=== PATIENT | female | born 1980 | race African-American/Black ===

== ENCOUNTER → 2017-02-05 10:38 | Outpatient (CLI) | payer MEDICARE ==
[2017-02-05 11:50] LABS: ALBUMIN 3.2 g/dL (3.4-5.0); BILIRUBIN - INDIRECT 0.16 mg/dL (0.00-1.00); BILIRUBIN - TOTAL 0.2 mg/dL (0.2-1.3); PROTEIN - SERUM 7.6 g/dL (6.4-8.2)
[2017-02-05 11:51] LABS: BILIRUBIN - DIRECT 0.04 mg/dL (0.00-0.30)
== END | disposition home or self-care (01) ==
LOC: D.US 09:30
PROVIDERS: Internal Medicine Gastroenterology
DX: K76.0 Fatty (change of) liver, not elsewhere classified (principal)

== ENCOUNTER → 2017-03-10 12:53 | Day surgery (SDC) | payer MEDICARE ==
[~2017-03-10] VITALS: Ht 167.6 cm; Wt 168.7 kg
--- NOTE | ~2017-03-10 | OP ---
PATIENT NAME: JADA BOLANOS MEDICAL RECORD: [id number] :78 LOCATION:[facility] ADMISSION DATE: SURGEON: VIOLETTE CARD DO DATE OF OPERATION: 03/10/2017 PROCEDURE: EGD with biopsies. INDICATIONS FOR PROCEDURE: Diarrhea, gas and bloating, heartburn, loss of weight, vomiting. SCOPE: Olympus video gastroscope. MEDICATIONS: Propofol 240 mg IV per anesthesia. ESTIMATED BLOOD LOSS: Minimal. COMPLICATIONS: None. FINDINGS: Informed consent was given. The patient was made comfortable with the above medication. After reaching an adequate level of sedation by slow IV push, the patient was placed on her left side. The endoscope was then advanced under direct visualization through the mouth to the second portion of the duodenum. The upper, middle, and distal thirds of the esophagus appeared normal. At the GE junction, there was very mild evidence of LA class A reflux induced esophagitis. The endoscope was advanced into the stomach and retroflexed to view the cardia, where a diminutive sliding hiatal hernia was present. The fundus and body of the stomach appeared normal. There were a few scattered, benign appearing fundic gland type polyps in the body of the stomach. One polyp was biopsied. The antrum and prepyloric region appeared normal. The endoscope was advanced through the pylorus into the duodenum where the bulb and second portion of the duodenum appeared normal. Random biopsies were taken from the bulb and second portion of the duodenum. The scope was withdrawn back into the stomach where random biopsies of the stomach were taken to submit for histology and to rule out H. pylori. The scope was then withdrawn from the patient. The patient tolerated the procedure well and there were no complications. IMPRESSIONS: 1. Mild LA class A reflux induced esophagitis. 2. Diminutive sliding hiatal hernia. 3. Gastric polyps with a biopsy taken. PLAN AND RECOMMENDATIONS: 1. Discharge home when recovery parameters are met. 2. Continue current medications. 3. Continue current diet. 4. Continue to work on exercise and dietary modifications for weight loss regarding the fatty liver disease history. 5. We will order a gastric emptying scan to rule out gastroparesis as a cause of her symptoms. 6. Follow up in clinic as scheduled and proceed with colonoscopy as planned. TRANSINT:[id number] Voice Confirmation ID: [id number] DOCUMENT ID: [id number] OPERATIVE REPORT [id number] JADA BOLANOS NATHAN A DO CC: [id number] DICTATION DATE: 03/10/17 1615 [place] DIVER: 03/11/17 0215 [facility] 03/10/17 [id number] [place] [address]
[~2017-03-10 12:53] MED LIST: ALDACTONE25 MG PO; AZELASTINE137 MCG/0. NASAL; CATAPRES0.1 MG PO; CYCLOBENZAPRINE10 MG PO; FLUTICASONE PRO16 GM NASAL; GABAPENTIN100 MG PO; LIPITOR40 MG PO; LOPRESSOR25 MG PO; NEXIUM40 MG PO; NYSTATIN1 PWD TOPICAL; SINGULAIR10 MG PO; TOPAMAX200 MG PO; VENTOLIN HFA18 GM INH; ZANTAC150 MG PO; ZOLOFT50 MG PO; ZYRTEC10 MG PO
[2017-03-10 13:44] LABS: HEMATOCRIT 38.5 % (36.0-48.0); HEMOGLOBIN 12.5 g/dL (12-16); MCH 29.6 pg (26.0-34.0); MCHC 32.5 g/dL (31.0-37.0); MEAN PLATELET VOLUME 9.7 fL (7.4-10.4); RBC 4.23 10x6/uL (4.00-5.40); WBC 5.5 10x3/uL (4.8-10.8)
[2017-03-10 13:57] LABS: ANION GAP 12.8 mmol/L (8-16); CALCIUM 9.2 mg/dL (8.5-10.1); CARBON DIOXIDE 25.7 mmol/L (21.0-32.0); CREATININE - SERUM 0.9 mg/dL (0.6-1.3); POTASSIUM - SERUM 3.5 mmol/L (3.5-5.1)
[2017-03-10 14:51] VITALS: BP 91/50; Ht 167.6 cm; Wt 168.7 kg
[2017-03-10 16:03] LABS: HCG URINE NEGATIVE (NEGATIVE)
--- NOTE | 2017-03-10 17:12 | NUR ---
1711-Pt escorted out and accompanied by her mother.
== END | disposition home or self-care (01) ==
LOC: D.OPS 12:53
PROVIDERS: Anesthesiology; Internal Medicine Gastroenterology
DX: K21.0 Gastro-esophageal reflux disease with esophagitis (principal); K44.9 Diaphragmatic hernia without obstruction or gangrene; K31.7 Polyp of stomach and duodenum; K29.80 Duodenitis without bleeding; K29.50 Unspecified chronic gastritis without bleeding; Z01.812 Encounter for preprocedural laboratory examination

== ENCOUNTER → 2017-03-12 11:53 | Outpatient (CLI) | payer MEDICARE ==
[2017-03-10 14:51] VITALS: BMI 60.1
== END | disposition home or self-care (01) ==
LOC: D.NM 11:30
DX: R10.9 Unspecified abdominal pain (principal); R11.10 Vomiting, unspecified; R14.0 Abdominal distension (gaseous)

== ENCOUNTER 2017-03-25 12:54 | Day surgery (SDC) | payer MEDICARE ==
[~2017-03-25] VITALS: Ht 167.6 cm; Wt 168.7 kg
[2017-03-25 14:22] LABS: HEMOGLOBIN 12.4 g/dL (12-16); MCH 29.6 pg (26.0-34.0); MCHC 33.5 g/dL (31.0-37.0); MCV 88.3 fL (80.0-100.0); MEAN PLATELET VOLUME 9.6 fL (7.4-10.4); RBC 4.19 10x6/uL (4.00-5.40); RDW 13.8 % (11.5-14.5); WBC 4.7 10x3/uL (4.8-10.8)
[2017-03-25 14:50] VITALS: BP 142/90; Ht 167.6 cm; Wt 168.7 kg
[2017-03-25 15:59] LABS: HCG SERUM NEGATIVE (NEGATIVE)
--- NOTE | 2017-03-25 19:26 | NUR ---
1830 IV DC WITH CATHER TIP INTACT
== END 2017-03-25 19:00 | disposition home or self-care (01) ==
LOC: D.OPS 12:54
PROVIDERS: Anesthesiology
DX: K58.0 Irritable bowel syndrome with diarrhea (principal); R63.4 Abnormal weight loss; Z01.812 Encounter for preprocedural laboratory examination; D12.2 Benign neoplasm of ascending colon

== ENCOUNTER → 2017-08-06 11:47 | Outpatient (CLI) | payer MEDICARE ==
[2017-03-25 14:50] VITALS: BMI 60.1
[2017-08-06 13:14] LABS: ALBUMIN 3.5 g/dL (3.4-5.0); BILIRUBIN - DIRECT 0.11 mg/dL (0.00-0.30); BILIRUBIN - INDIRECT 0.29 mg/dL (0.00-1.00); BILIRUBIN - TOTAL 0.4 mg/dL (0.2-1.3); PROTEIN - SERUM 7.2 g/dL (6.4-8.2)
== END | disposition home or self-care (01) ==
LOC: D.OPS 03-10 15:00 → D.US 09:30 → D.LAB 10:15 → D.US 10:30
PROVIDERS: Internal Medicine Gastroenterology
DX: K76.0 Fatty (change of) liver, not elsewhere classified (principal)

== ENCOUNTER → 2018-03-03 09:58 | Outpatient (CLI) | payer MEDICARE ==
[2017-03-25 14:50] VITALS: BMI 60.1
[2018-03-03 11:33] LABS: ALBUMIN 3.3 g/dL (3.4-5.0); BILIRUBIN - DIRECT 0.08 mg/dL (0.00-0.30); BILIRUBIN - INDIRECT 0.12 mg/dL (0.00-1.00); BILIRUBIN - TOTAL 0.2 mg/dL (0.2-1.3); PROTEIN - SERUM 7.6 g/dL (6.4-8.2)
== END | disposition home or self-care (01) ==
LOC: D.US 09:30
PROVIDERS: Internal Medicine Gastroenterology
DX: K76.0 Fatty (change of) liver, not elsewhere classified (principal)

== ENCOUNTER → 2018-09-02 09:11 | Outpatient (CLI) | payer MEDICARE ==
[2017-03-25 14:50] VITALS: BMI 60.1
[2018-09-02 10:43] LABS: ALBUMIN 3.4 g/dL (3.4-5.0); BILIRUBIN - DIRECT 0.1 mg/dL (0.00-0.30); BILIRUBIN - INDIRECT 0.19 mg/dL (0.00-1.00); BILIRUBIN - TOTAL 0.29 mg/dL (0.2-1.3); PROTEIN - SERUM 7.3 g/dL (6.4-8.2)
== END | disposition home or self-care (01) ==
LOC: D.US 09:11
PROVIDERS: Internal Medicine Gastroenterology
DX: K76.0 Fatty (change of) liver, not elsewhere classified (principal)

== ENCOUNTER → 2019-03-03 11:34 | Outpatient (CLI) | payer MEDICARE ==
[2017-03-25 14:50] VITALS: BMI 60.1
[2019-03-03 12:19] LABS: ALBUMIN 3.4 g/dL (3.4-5.0); BILIRUBIN - DIRECT 0.09 mg/dL (0.00-0.30); BILIRUBIN - INDIRECT 0.2 mg/dL (0.00-1.00); BILIRUBIN - TOTAL 0.29 mg/dL (0.2-1.3); PROTEIN - SERUM 7.6 g/dL (6.4-8.2)
== END | disposition home or self-care (01) ==
LOC: D.LAB 11:15 → D.US 11:30 → D.LAB 11:34
PROVIDERS: ATTEND Internal Medicine Gastroenterology
DX: K76.0 Fatty (change of) liver, not elsewhere classified (principal)

== ENCOUNTER → 2019-03-13 12:39 | Outpatient (CLI) | payer MEDICARE ==
[2017-03-25 14:50] VITALS: BMI 60.1
[2019-03-14 11:13] LABS: HEPATITIS C ANTIBODY 0.2 S/CO RAT (0.0-0.9)
== END | disposition home or self-care (01) ==
LOC: D.LAB 12:39
PROVIDERS: ATTEND Internal Medicine Gastroenterology
DX: K76.0 Fatty (change of) liver, not elsewhere classified (principal); R94.5 Abnormal results of liver function studies; E66.2 Morbid (severe) obesity with alveolar hypoventilation

== ENCOUNTER → 2019-09-01 09:25 | Outpatient (CLI) | payer MEDICARE ==
[2017-03-25 14:50] VITALS: BMI 60.1
[2019-09-01 10:02] LABS: ALBUMIN 3.2 g/dL (3.4-5.0); BILIRUBIN - DIRECT 0.08 mg/dL (0.00-0.30); BILIRUBIN - INDIRECT 0.25 mg/dL (0.00-1.00); BILIRUBIN - TOTAL 0.33 mg/dL (0.2-1.3); PROTEIN - SERUM 7.9 g/dL (6.4-8.2)
== END | disposition home or self-care (01) ==
LOC: D.US 08:30 → D.LAB 09-04 10:45 → D.US 09-04 11:00
PROVIDERS: ATTEND Internal Medicine Gastroenterology
DX: K76.0 Fatty (change of) liver, not elsewhere classified (principal)

== ENCOUNTER → 2020-03-06 10:41 | Outpatient (CLI) | payer MEDICARE ==
[2017-03-25 14:50] VITALS: BMI 60.1
[2020-03-06 12:16] LABS: ALBUMIN 3.3 g/dL (3.4-5.0); BILIRUBIN - DIRECT 0.08 mg/dL (0.00-0.30); BILIRUBIN - INDIRECT 0.18 mg/dL (0.00-1.00); BILIRUBIN - TOTAL 0.26 mg/dL (0.2-1.3); PROTEIN - SERUM 7.7 g/dL (6.4-8.2)
== END | disposition home or self-care (01) ==
LOC: D.LAB 09:15 → D.US 09:30 → D.LAB 10:41
PROVIDERS: ATTEND Internal Medicine Gastroenterology
DX: K76.0 Fatty (change of) liver, not elsewhere classified (principal)